=== PATIENT | male | born 1990 | race Caucasian/White ===

== ENCOUNTER 2019-06-22 13:09 | Emergency (ER) | payer SELFPAY ==
[~2019-06-22] VITALS: Ht 175.3 cm; Wt 69.9 kg
[2019-06-22 13:25] VITALS: BP_SYST 96
--- NOTE | 2019-06-22 13:26 | NUR ---
Patient to ER bed 05 to gown for evaluation. Side rails up.
--- NOTE | 2019-06-22 13:32 | NUR ---
ER Dr. Solitario at bedside examining patient.
--- NOTE | 2019-06-22 13:38 | NUR ---
Patient AAO x 4 ambulates to ER bed 05 with complaints of fever, congestion, 3/10 JOHNSON and body aches since last night. Last medication taken was Nyquil at 0300 this AM. Traveling on vacation from [place] since last . Even chest rise and fall with respirations. Will continue to monitor.
--- NOTE | 2019-06-22 13:46 | NUR ---
Patient given written and verbal discharge instructions and verbalizes understanding. ER MD Dr. Solitario discussed with patient the results and treatment provided. Patient in stable condition. ID arm band removed. Rx of Motrin, Tylenol, and Tamiflu given. Patient educated on pain management and to follow up with PMD. Pain Scale 3/10. Opportunity for questions provided and answered. Medication side effect fact sheet provided.
== END 2019-06-22 13:46 | disposition home or self-care (01) ==
LOC: SED 13:09
DX: J11.1 Influenza due to unidentified influenza virus with other respiratory manifestations (principal)
CPT/HCPCS: 36415; 86710; 99283